=== PATIENT | male | born 1970 | race Caucasian/White ===

== ENCOUNTER → 2020-06-28 08:50 | Outpatient (CLI) | payer MEDICAID, SELFPAY ==
[2020-06-28 09:44] LABS: Hemoglobin A1c 5.3 % (3.8-5.6)
[2020-06-28 09:47] LABS: ALB/GLOB Ratio 1.1 RATIO (0.9-2.4); AST(SGOT) 11 U/L (15-37); Alanine Aminotransfer ALT/SGPT 20 U/L (16-61); Albumin, Serum 3.9 g/dL (3.2-5.0); Alkaline Phosphatase 100 U/L (45-117); Anion Gap 3 (5-15); BUN 16 mg/dL (7-18); BUN/Creat Ratio 14.3 RATIO (10-20); Calcium,Total 9.1 mg/dL (8.5-10.1); Chloride 107 mmol/L (98-107); Cholesterol 192 mg/dL (200); Creatinine, Serum 1.12 mg/dL (0.70-1.30); EST Glomerular Filtration Rate 73 mL/min (>60); Est Glom Filt Rate - Afr Amer 89 mL/min (>60); Globulin 3.6 g/dL (2.2-4.2); Glucose 116 mg/dL (74-106); High Density Lipoprotein 35 mg/dL; Potassium 4.7 mmol/L (3.5-5.1); Protein, Total 7.5 g/dL (6.4-8.2); Sodium Level 141 mmol/L (136-145); Triglycerides 237 mg/dL; Very Low Density Lipoprotein 47 mg/dL (5-40)
== END ==
PROVIDERS: PCP Nurse Practitioner Family; Referring Provider Nurse Practitioner Family; Visit Provider Nurse Practitioner Family
DX: E11.9 Type 2 diabetes mellitus without complications (principal); E78.5 Hyperlipidemia, unspecified
CPT/HCPCS: 36415; 80053; 80061; 83036

== ENCOUNTER → 2020-11-29 12:08 | Outpatient (CLI) | payer MEDICAID, SELFPAY ==
[2020-11-29 13:37] LABS: Microalbumin,Random Urine 6.1 mg/L (NO RANGE EST.)
[2020-11-29 13:45] LABS: ALB/GLOB Ratio 1.1 RATIO (0.9-2.4); AST(SGOT) 16 U/L (15-37); Alanine Aminotransfer ALT/SGPT 22 U/L (16-61); Albumin, Serum 4.1 g/dL (3.2-5.0); Alkaline Phosphatase 99 U/L (45-117); Anion Gap 6 (5-15); BUN 20 mg/dL (7-18); BUN/Creat Ratio 19.8 RATIO (10-20); Calcium,Total 9.6 mg/dL (8.5-10.1); Chloride 106 mmol/L (98-107); Cholesterol 214 mg/dL (200); Creatinine, Serum 1.01 mg/dL (0.70-1.30); EST Glomerular Filtration Rate 82 mL/min (>60); Est Glom Filt Rate - Afr Amer 100 mL/min (>60); Globulin 3.7 g/dL (2.2-4.2); Glucose 95 mg/dL (74-106); High Density Lipoprotein 39 mg/dL; Lipase 769 U/L (73-393); Potassium 4.2 mmol/L (3.5-5.1); Protein, Total 7.8 g/dL (6.4-8.2); Sodium Level 141 mmol/L (136-145); Triglycerides 205 mg/dL; Very Low Density Lipoprotein 41 mg/dL (5-40)
[2020-11-29 13:47] LABS: Hemoglobin A1c 5.3 % (3.8-5.6)
== END ==
DX: E11.9 Type 2 diabetes mellitus without complications (principal); E78.5 Hyperlipidemia, unspecified
CPT/HCPCS: 36415; 80053; 80061; 82043; 83036; 83690

== ENCOUNTER → 2020-12-07 09:39 | Outpatient (CLI) | payer MEDICAID, SELFPAY ==
[2020-12-07 11:07] LABS: Absolute Lymphocyte Count 1.66 X10^3/uL (0.83-4.51); Absolute Neutrophil Count 4.1 X10^3/uL (2.0-7.7); Basophil# 0.06 X10^3/uL; Basophil% 0.9 % (0-1); Eosinophil# 0.22 X10^3/uL; Eosinophils% 3.3 % (0-5); Hematocrit 49.2 % (40-54); Hemoglobin 15.7 g/dL (13.0-16.5); Lymphocyte # 1.66 X10^3/ul (4.0); Lymphocyte % 25.2 % (19-41); Mean Corp Hgb Conc 31.9 g/dL (32-36); Mean Corpuscular Hgb 27.5 pg (27.0-32.0); Mean Corpuscular Volume 86.2 fL (80-94); Mean Platelet Vol. 9.9 fl (6.2-12.0); Monocyte# 0.56 X10^3/uL; Monocyte% 8.5 % (0-10); NRBC Flagged by Analyzer 0 % (0-5); Neutrophil # 4.07 X10^3/uL (2.7-7.7); Neutrophil % 61.8 % (47-70); Platelet Count 255 K/mm3 (150-450); RBC Distribution Width CV 13.4 % (11.6-14.6); RBC Distribution Width SD 42.4 fl (35.1-43.9); Red Blood Count 5.71 M/mm3 (4.6-6.2); White Blood Count 6.6 K/mm3 (4.4-11.0)
[2020-12-07 11:26] LABS: Lipase 346 U/L (73-393)
== END ==
DX: K86.1 Other chronic pancreatitis (principal); E11.9 Type 2 diabetes mellitus without complications
CPT/HCPCS: 36415; 83690; 85025

== ENCOUNTER → 2020-12-10 17:13 | Outpatient (CLI) | payer MEDICAID, SELFPAY ==
[2020-12-10 18:40] LABS: Lipase 228 U/L (73-393)
== END ==
PROVIDERS: Referring Provider Nurse Practitioner Adult Health; Visit Provider Nurse Practitioner Adult Health
DX: K86.1 Other chronic pancreatitis (principal)
CPT/HCPCS: 36415; 83690

== ENCOUNTER 2020-12-27 03:50 | Emergency (ER) | payer MEDICAID, SELFPAY ==
--- NOTE | 2020-12-27 03:55 | EKG12_ITS ---
Test Reason : CP Blood Pressure : / mmHG Vent. Rate : 073 BPM Atrial Rate : 073 BPM P-R Int : 150 ms QRS Dur : 084 ms QT Int : 378 ms P-R-T Axes : 073 -04 036 degrees QTc Int : 416 ms Normal sinus rhythm with sinus arrhythmia Normal ECG Confirmed by HARRY CHU, JULES ([id number]), photograph editor RAMON KOCH ([id number]) on 12/28/2020 9:05:16 AM Referred By: HAWK Confirmed By:JULES MCDONALD MD
--- NOTE | 2020-12-27 03:56 | ED.DCSUM_ITS ---
History of Present Illness Chief Complaint: Chest Other Informant: Patient Onset: Days Context: Gradual Onset Timing: Intermittent Current Severity: Moderate Maximum Severity: Moderate Narrative: Patient is a 50-year-old male medical history significant for pis-wpxnqul-ihxbdsgrc diabetes who presents to the emergency department with abdominal pain. Patient states his symptoms began on Sunday. He states that he was eating cheese and crackers. He states shortly thereafter, he began to have pain in his midepigastric area under his right upper quadrant. He states it would wax and wane but never really go away. He denies any fevers. He does admit to some nausea. He states that he tried yqfk-ukh-bgdorwx acid reducers with little improvement. He states sometimes, and feels like it is radiating to his chest. He is never had pain like this before. He has no history of surgery. He has no history of coronary vascular disease. Past Medical History - Allergies and Home Meds Allergies/Adverse Reactions: Allergies No Known Allergies Allergy (Verified 12/27/20 03:51) [facility] - Prior records reviewed: Yes Past Medical History: - - DM Surgical History: noncontributory Review of Systems General: Denies: Chills, Fever, Sweats Eyes: Denies: Visual changes - bilaterally, Diplopia ENT: Denies: Rhinorrhea, Sore throat Cardiovascular: Denies: Chest pain, Palpitations Respiratory: Denies: Dyspnea, Cough, Dyspnea on exertion Gastrointestinal: Reports: Abdominal pain, Nausea. Denies: Vomiting, Diarrhea, Melena, Hematochezia Genitourinary: Denies: Dysuria, Hematuria, Frequency Musculoskeletal: Denies: Back pain, Extremity Pain Skin: Denies: Rash, Wounds Neurological: Denies: Headache, Weakness, Numbness Physical Exam Inital Vital Signs reviewed: Yes General: Well nourished, Well developed, No Acute Distress Head: Normocephalic, Atraumatic Eyes: Perrl, EOMI ENT: Moist mucous membranes, No rhinorrhea Neck: Supple, Nontender Cardiovascular: Regular rate, Regular rhythm, No murmurs Respiratory: No distress, CTA bilaterally, Chest nontender Abdomen: Soft, Nondistended, Normal bowel sounds, Tender. Negative for: Guarding, Rebound tenderness Back: Nontender, Normal Inspection Extremities: Nontender, No edema Skin: Normal color, No rash Neurological: Alert, Oriented x3, Cranial nerves II-XII grossly intact, Normal Strength, Normal Sensation Psychological: Normal affect, Normal Mood Diagnostic/Tx/Re-eval Clinical Impression(s) from Imaging Studies Abdomen/Pelvis CT 12/27/20 04:37 IMPRESSION: Edema of the wall of the duodenum and adjacent stranding and the first and second part suspicious for duodenitis. Mild enlargement of the head of the pancreas which may represent pancreatitis. Adjacent small reactive lymph node. Constipation. Degenerative change of the thoracolumbar spine. Electronically Signed: Madison Spring MD at 5:16 EDT Tel , Service support , Abnormal Lab Results 12/27/20 12/27/20 04:10 04:10 WBC 9.0 RBC 5.50 Hgb 15.6 Hct 47.1 MCV 85.6 MCH 28.4 MCHC 33.1 RDW Std Deviation 41.6 RDW Coeff of Celine 13.2 Plt Count 217 MPV 9.8 Immature Gran % (Auto) 0.300 Neut % (Auto) 67.9 Lymph % (Auto) 19.6 Murray % (Auto) 8.2 Eos % (Auto) 3.3 Baso % (Auto) 0.7 Absolute Neuts (auto) 6.1 Absolute Lymphs (auto) 1.77 Nucleated RBC % 0 Sodium 139 Potassium 4.1 Chloride 104 Carbon Dioxide 28.0 Anion Gap 7 BUN 21 H Creatinine 1.16 Estim Creat Clear Calc 72.07 Est GFR (MDRD) Af Amer 85 Est GFR (MDRD) Non-Af 70 BUN/Creatinine Ratio 18.1 Glucose 93 Calcium 9.2 Total Bilirubin 0.50 AST 12 L ALT 18 Alkaline Phosphatase 86 Troponin I < 0.015 Total Protein 7.3 Albumin 3.9 Globulin 3.4 Albumin/Globulin Ratio 1.1 Lipase 233 - Medical Decision Making Patient presents with right upper quadrant pain to his mid epigastrium. He states its been constant for the past 24 hours. He is mildly nauseated with no vomiting. EKG was obtained on patient arrival. Was sinus rhythm without evidence of acute ischemic change. I do not suspect that this is cardiac pain. This does seem to be more GI related. Metabolic work-up was pursued. Labs are unremarkable. Of note, the patient has been taking double dose of his Metformin it is only supposed to be on once daily. I do feel this is causing GI irritation. Patient underwent CT imaging. There is evidence of duodenitis. There is no perforation. He is had no bleeding. I am going to treat him with combination therapy with PPI and Carafate. Patient is comfortable with this plan of care and we discharged home. Impression 1. Acute duodenitis ED Disposition - Plan for ED Patient: Instructions: ED PEPTIC ULCER vs GASTRITIS Prescriptions: Sucralfate [Carafate] 1 gm PO 4X/DAY #120 tab Prescription Printed Pantoprazole Sodium [Protonix] 40 mg PO DAILY #30 tab Prescription Printed [facility]: [facility] [Primary Care Provider] -
[2020-12-27 03:57] VITALS: BP 136/89; PULSE 81; RESP 18; TEMP 36.6; O2SAT 98; BMI 29.7
[2020-12-27 04:14] VITALS: BP 136/89; PULSE 69; RESP 18
[2020-12-27 04:16] LABS: Absolute Lymphocyte Count 1.77 X10^3/uL (0.83-4.51); Absolute Neutrophil Count 6.1 X10^3/uL (2.0-7.7); Basophil# 0.06 X10^3/uL; Basophil% 0.7 % (0-1); Eosinophils% 3.3 % (0-5); Hematocrit 47.1 % (40-54); Hemoglobin 15.6 g/dL (13.0-16.5); Lymphocyte # 1.77 X10^3/ul (4.0); Lymphocyte % 19.6 % (19-41); Mean Corp Hgb Conc 33.1 g/dL (32-36); Mean Corpuscular Hgb 28.4 pg (27.0-32.0); Mean Corpuscular Volume 85.6 fL (80-94); Mean Platelet Vol. 9.8 fl (6.2-12.0); Monocyte# 0.74 X10^3/uL; Monocyte% 8.2 % (0-10); NRBC Flagged by Analyzer 0 % (0-5); Neutrophil # 6.14 X10^3/uL (2.7-7.7); Neutrophil % 67.9 % (47-70); Platelet Count 217 K/mm3 (150-450); RBC Distribution Width CV 13.2 % (11.6-14.6); RBC Distribution Width SD 41.6 fl (35.1-43.9)
[2020-12-27] MEDS: 0.9% Normal Saline 1,000 ML 1000 ML IV (04:18)
[2020-12-27] MEDS: Ondansetron 4 MG/2 ML Vial IV (04:18)
[2020-12-27] MEDS: Morphine 4 MG/ML Syringe IV (04:18)
[2020-12-27 04:36] LABS: ALB/GLOB Ratio 1.1 RATIO (0.9-2.4); AST(SGOT) 12 U/L (15-37); Alanine Aminotransfer ALT/SGPT 18 U/L (16-61); Albumin, Serum 3.9 g/dL (3.2-5.0); Alkaline Phosphatase 86 U/L (45-117); Anion Gap 7 (5-15); BUN 21 mg/dL (7-18); BUN/Creat Ratio 18.1 RATIO (10-20); Calcium,Total 9.2 mg/dL (8.5-10.1); Chloride 104 mmol/L (98-107); Creatinine, Serum 1.16 mg/dL (0.70-1.30); EST Glomerular Filtration Rate 70 mL/min (>60); Est Glom Filt Rate - Afr Amer 85 mL/min (>60); Estimated Creatinine Clearance 72.07 ml/min; Globulin 3.4 g/dL (2.2-4.2); Glucose 93 mg/dL (74-106); Lipase 233 U/L (73-393); Potassium 4.1 mmol/L (3.5-5.1); Protein, Total 7.3 g/dL (6.4-8.2); Sodium Level 139 mmol/L (136-145)
--- NOTE | 2020-12-27 04:37 | CT_ITS ---
INDICATION: abd pain EXAMINATION: CT ABDOMEN AND PELVIS WITH CONTRAST - CT Abdomen And Pelvis W/ Contrast Injection TECHNIQUE: Helically acquired images were obtained of the abdomen and pelvis following IV contrast. A radiation dose optimization technique was used for this scan. IV Contrast dosage and agent: 100 mL of Isovue-370 Oral contrast: None. COMPARISON: None. FINDINGS: LOWER CHEST: Lung bases are clear. No cardiomegaly or pericardial effusion. LIVER: Homogeneous. No focal mass. GALLBLADDER AND BILIARY TREE: No calcified gallstones. No gallbladder distension or wall edema. No intra- or extrahepatic biliary ductal dilation. PANCREAS: There is an enlarged appearance of the head of the pancreas. There is adjacent edema surrounding the duodenum. Mild distention of the pancreatic duct. There is minimal distention of the common duct. SPLEEN: Normal size without focal cystic or solid mass. ADRENAL GLANDS: No nodules. KIDNEYS AND URETERS: Normal renal size and position. No hydronephrosis. PERITONEUM: No ascites or free air. No other fluid collection. BOWEL: No evidence of acute appendicitis. There is an edematous appearance of the duodenum with wall thickening. There is an adjacent lymph node measuring 1.1 cm. There is abundant stool within the colon. LYMPH NODES: No enlarged mesenteric or retroperitoneal lymph nodes. VESSELS: Aorta is non-dilated. URINARY BLADDER: Unremarkable. REPRODUCTIVE ORGANS: The prostate appears of normal size. There is partial calcification. ABDOMINAL WALL: No discrete abdominal or pelvic wall hernia. BONES: There is multilevel spondylosis. There is multilevel degenerative change. There are multilevel Schmorl''s nodes. At L4-L5 there is a broad disc bulge mild to moderate neural foramina narrowing without central stenosis. CT/Abdomen/Pelvis W IV Cont ONLY IMPRESSION: Edema of the wall of the duodenum and adjacent stranding and the first and second part suspicious for duodenitis. Mild enlargement of the head of the pancreas which may represent pancreatitis. Adjacent small reactive lymph node. Constipation. Degenerative change of the thoracolumbar spine. Electronically Signed: Madison Spring MD at 5:16 EDT Tel , Service support ,
[2020-12-27 05:38] VITALS: BP 114/82; PULSE 75; RESP 18; O2SAT 96
== END 2020-12-27 05:39 | disposition home or self-care (01) ==
LOC: ED 04:10
PROVIDERS: Emergency Provider Emergency Medicine
DX: K29.80 Duodenitis without bleeding (principal); E11.9 Type 2 diabetes mellitus without complications; Z79.84 Long term (current) use of oral hypoglycemic drugs
CPT/HCPCS: 74177; 80053; 83690; 84484; 85025; 93005; 96374; 96375; 99282; J7030; A4216; J2405

== ENCOUNTER → 2021-02-14 09:57 | Outpatient (CLI) | payer MEDICAID, SELFPAY ==
--- NOTE | 2021-02-14 12:42 | NEURO_ITS ---
NCS and/or EMG Patient Report Ordering Doctor: Izabela Gutierrez DATE OF SERVICE: 02/14/21 Indication: Pain and numbness involving the toes and soles of both feet. Symptoms have been present intermittently for one year. He reports that this has improved since discontinuing his metformin medication, but he is unsure if it is related. He has chronic low back pain and known spondylosis. He denies any significant weakness in the bilateral lower extremities. Findings: Nerve conduction studies were performed in the right and left lower extremities. The right peroneal motor study recording the extensor digitorum brevis showed a normal amplitude, normal distal latency and normal conduction velocity. No conduction block or focal slowing was present across the fibular neck. The right tibial motor study recording the abductor hallucis brevis showed a normal amplitude, normal distal latency and normal conduction velocity. Right sural sensory response showed a normal amplitude and conduction velocity. Right superficial peroneal sensory response showed a normal amplitude and conduction velocity. The left peroneal motor study recording the extensor digitorum brevis showed a normal amplitude, normal distal latency and normal conduction velocity. No conduction block or focal slowing was present across the fibular neck. The left tibial motor study recording the abductor hallucis brevis showed a normal amplitude, normal distal latency and normal conduction velocity. Left sural sensory response showed a normal amplitude and conduction velocity. Left superficial peroneal sensory response showed a normal amplitude and conduction velocity. Needle EMG of the bilateral lower extremities and paraspinal muscles was performed. In the right lower extremity, insertional activity was increased in the medial gastrocnemius and extensor hallucis longus muscles. No obvious denervation was present in any examined muscle. Motor unit morphology, activation, and recruitment patterns were normal in the other examined muscles. In the left lower extremity, insertional activity was increased in the tibialis anterior and medial gastrocnemius muscles. No obvious denervation was present in any examined muscle. Motor unit morphology, activation, and recruitment patterns were normal in the other examined muscles. Impression: This is an abnormal study. There is electrophysiologic evidence suggestive of bilateral, mild, chronic, L5/S1 radiculopathies. There is some irritability of affected muscles, but no chula denervation. In addition, there was no electrophysiologic evidence of a peripheral polyneuropathy in the lower extremities. Please note: routine nerve conduction studies and needle EMG assess the larger, myelinated motor and sensory fibers. Thus, routine electrodiagnostic studies may be insensitive in detecting a peripheral neuropathy restricted to small fibers alone (i.e., pain, temperature and autonomic fibers). However, most peripheral neuropathies with predominantly small fiber large dysfunction will also involve large fibers to a lesser extent, and will demonstrate abnormalities on e lectrodiagnostic studies. Thus, clinical correlation is required in the interpretation of this negative electrodiagnostic study if an isolated small fiber neuropathy is considered. Diogo Schulz D.O.
== END ==
PROVIDERS: Referring Provider Nurse Practitioner Adult Health; Visit Provider Nurse Practitioner Adult Health
DX: R20.2 Paresthesia of skin (principal)
CPT/HCPCS: 95886; 95911

== ENCOUNTER 2021-08-10 01:45 | Emergency (ER) | payer MEDICAID, SELFPAY ==
[2021-08-10 01:46] VITALS: BP 139/102; PULSE 67; RESP 17; TEMP 37.1; O2SAT 97; BMI 31.7
[2021-08-10 01:56] VITALS: O2SAT 97
--- NOTE | 2021-08-10 01:58 | RAD_ITS ---
STUDY: X-RAY CHEST REASON FOR EXAM: Male, 51 years old. chest pain TECHNIQUE: PA and lateral views of the chest. COMPARISON: None. FINDINGS: The lungs are clear and expanded. There is no demonstrated pleural abnormality. Normal size heart. Normal mediastinum and juliana. Normal visualized pulmonary arteries. Normal visualized aortic arch and descending thoracic aorta. There are diffuse degenerative changes of the visualized thoracic spine. There is degenerative osteoarthritis of the bilateral shoulders. There is no demonstrated abnormality of the visualized soft tissue structures of the upper abdomen. RAD/Chest PA and Lateral IMPRESSION: No acute cardiopulmonary disease. Electronically Signed: Savannah Ace MD at 2:25 EDT , Service support ,
--- NOTE | 2021-08-10 01:58 | EKG12_ITS ---
Test Reason : CP Blood Pressure : / mmHG Vent. Rate : 075 BPM Atrial Rate : 075 BPM P-R Int : 138 ms QRS Dur : 082 ms QT Int : 380 ms P-R-T Axes : 051 -27 026 degrees QTc Int : 424 ms Normal sinus rhythm Normal ECG Confirmed by ANDER CHU, MERCY ([id number]), scientific editor RAMON KOCH ([id number]) on 08/11/2021 8:56:28 AM Referred By: Confirmed By:MERCY WORTHINGTON MD
[2021-08-10] MEDS: Mag Hydrox/Al Hydrox/Simeth 30 ML UDC PO (02:05)
[2021-08-10 02:13] LABS: Absolute Lymphocyte Count 2.03 X10^3/uL (0.83-4.51); Absolute Neutrophil Count 6.4 X10^3/uL (2.0-7.7); Basophil# 0.04 X10^3/uL; Basophil% 0.4 % (0-1); Eosinophil# 0.32 X10^3/uL; Eosinophils% 3.3 % (0-5); Hematocrit 45.8 % (40-54); Hemoglobin 15.3 g/dL (13.0-16.5); Lymphocyte # 2.03 X10^3/ul (0.83-4.51); Lymphocyte % 21.1 % (19-41); Mean Corp Hgb Conc 33.4 g/dL (32-36); Mean Corpuscular Hgb 28.3 pg (27.0-32.0); Mean Corpuscular Volume 84.8 fL (80-94); Mean Platelet Vol. 10.1 fl (6.2-12.0); Monocyte# 0.79 X10^3/uL; Monocyte% 8.2 % (0-10); NRBC Flagged by Analyzer 0 % (0-5); Neutrophil # 6.43 X10^3/uL (2.7-7.7); Neutrophil % 66.7 % (47-70); Platelet Count 233 K/mm3 (150-450); RBC Distribution Width CV 12.9 % (11.6-14.6); RBC Distribution Width SD 39.8 fl (35.1-43.9); White Blood Count 9.6 K/mm3 (4.4-11.0)
--- NOTE | 2021-08-10 02:22 | ED.VIS.CHEST ---
HPI History of Present Illness Chief Complaint: Chest Pain Detail of Chief Complaint: Subxiphoid discomfort with radiation to the back Informant: patient Onset/Context/Timing Onset: Yesterday (Subxiphoid discomfort last evening for 1 to 1.5 hours and to the day at 1420 200) and Weeks (Central intrascapular back pain intermittently for 1 to 2 weeks) Activity at onset: sudden and rest Timing: Intermittent (1.5 to greater than 2 hours) Quality: Positive for Indigestion (Patient states he had indigestion at 1400 and got better after eating.) Location: Substernal Current Severity: Moderate Maximum Severity: Moderate (Discomfort this evening and unable to go to sleep) Worsened By: Nothing Relieved By: NSAIDS (The episode that occurred the night prior to presentation) Associated Symptoms: Negative for Nausea, Vomiting, Diaphoresis, Dyspnea, Cough, Fever, Lightheadedness, Acid Reflux and Palpitations Narrative Narrative: Patient is a 51-year-old male who quit smoking several years ago. He smoked 2 packs/day since age of 9. He has a remote history of pancreatitis. The cause of his pancreatitis was unknown. He denies intolerance to greasy or fried foods. He denies family history of cholelithiasis. He denies history of PE or DVT. He denies leg pain, swelling discoloration. He denies symptoms of claudication. He denies change in the color, consistency or caliber of his stool. The discomfort is not positional. This is not similar to the pain he had when he was diagnosed with pancreatitis. He states he was in the hospital for 8 days. He was cared for at [facility]. He presents because the pain that started at 2200 has not gone away. Prior Similar Symptoms: No Recent Illness/Hospitalization: No CVD Risk Factors: Positive for Smoking; Negative for Hypertension, Diabetes, Hypercholesterolemia and Family History 1' </=55 PE Risk Factors: Negative for Recent Travel/Surgery, Recent Immobilization, Prior DVT or PE, Cancer and OCP + Smoking + >/=35 TAD Risk Factors: Negative for Marfan's Syndrome, Hypertension and Family History [facility] Medical History Pancreatitis Home Medications omeprazole 20 mg PO DAILY #30 capsule 08/10/21 [Rx Last Taken Unknown] Allergy/AdvReac Type Severity Reaction Status Date / Time No Known Allergies Allergy Verified 08/10/21 01:54 Social History (Updated 08/10/21 @ 02:[address] Adrian Botello MD) household members: spouse current occupational status: employed history of recent travel: No Smoking Status: Former smoker substance use type: does not use ROS ROS ED Constitutional Constitutional ED: Denies chills, fever(s), subjective, sweats or weight loss Eyes Eyes: Denies blurry vision, change in vision or diplopia ENT ENT ED: Denies ear pain, rhinorrhea or sore throat Cardiovascular Cardiovascular: Reports as per HPI and chest pain; Denies orthopnea, palpitations, paroxysmal nocturnal dyspnea or racing heartbeat Respiratory/Chest Respiratory/Chest: Denies cough, dyspnea, dyspnea on exertion, orthopnea, paroxysmal nocturnal dyspnea or sputum Gastrointestinal Gastrointestinal: Reports abdominal pain; Denies constipation, diarrhea, melena, nausea or vomiting Genitourinary Genitourinary ED: Denies dysuria, hematuria or urinary frequency Musculoskeletal Musculoskeletal: Denies arthralgias, back pain or myalgias Integumentary Denies rash Neurologic Neurologic: Denies headache(s) or weakness Hematologic/Lymphatic Hematologic/Lymphatic: Denies easy bleeding or easy bruising EXAM Physical Exam Const Vital Signs: 08/10/21 01:46 08/10/21 01:54 08/10/21 01:56 Temperature 98.7 F Temperature Source Temporal Pulse Rate 67 Respiratory Rate 17 Respiratory Effort Short of Breath Blood Pressure 139/102 H Blood Pressure Mean 114 Pulse Ox 97 97 Oxygen Delivery Method Room Air Room Air Positive well nourished, well developed and obese General Appearance ED: well developed and NAD; Negative for pallor Nutritional Appearance: obese HEENT Reports TM's clear and moist mucous membranes normocephalic and atraumatic Tympanic Membrane ED: Yes TM's clear Eyes PERRL and EOMs intact bilaterally General Eye ED: Negative for pale conjunctiva or scleral icterus Neck no lymphadenopathy, supple and no JVD Chest Wall palpation of chest normal Resp normal respiratory effort and clear to auscultation bilaterally Effort and Inspection: respiratory distress Cardio regular rate, regular rhythm, S1 normal heart sound and S2 normal heart sound Rate: tachycardic GI normal to inspection, nondistended, normoactive bowel sounds, soft to palpation, non-distended and no masses; Negative for hepatosplenomegaly GI Narrative: Patient has pain outpatient the epigastric left upper quadrant. Palpation: Negative for splenomegaly Back/Spine no CVA tenderness and no thoracic nor lumbar tenderness Extremity normal to inspection Extremity Narrative: There is no asymmetry, swelling, discoloration, leg vein distention, palpable cords or tenderness along the distribution of the deep venous system. General Extremety ED: Negative for edema or tenderness General Extremity: Negative for edema Neuro oriented x3 and CN's II-XII intact bilaterally Sensorium / Orientation: awake and alert Psych mental status grossly normal Skin no rashes or lesions noted and no wounds General Skin Exam: Negative for jaundice or pallor Heart Score History: Slightly/Non-Suspicious ECG: Normal Age: >45 - <65 years Risk Factors: 1 or 2 Risk Factors Score: 2 MDM MDM MDM Narrative Medical decision making narrative: With tenderness in the epigastric area rating through the back need to consider biliary disease. Also need to consider esophagitis, reflux, peptic ulcer disease. Since there is also tenderness in left upper quadrant lipase was obtained to rule out pancreatitis. With history of indigestion may represent atypical presentation of an inferior cardiac ischemia. Since patient described as indigestion and improved with meal GI cocktail was ordered. Patient was reassessed at 0245. He states the pain that was anterior has improved significantly. He still having discomfort in the middle of his back. Patient asked if he could have more of the GI cocktail. IV Pepcid was ordered. Patient was reassessed at 0340. He reports marked improvement after IV Pepcid. Plan is discharged home with appropriate home-going instructions and prescription for PPI. Lab Data Attestation: I reviewed the patient's lab results. Labs: Laboratory Results - last 24 hr 08/10/21 08/10/21 01:55 01:55 WBC 9.6 RBC 5.40 Hgb 15.3 Hct 45.8 MCV 84.8 MCH 28.3 MCHC 33.4 RDW Std Deviation 39.8 RDW Coeff of Celine 12.9 Plt Count 233 MPV 10.1 Immature Gran % (Auto) 0.300 Neut % (Auto) 66.7 Lymph % (Auto) 21.1 Monroe % (Auto) 8.2 Eos % (Auto) 3.3 Baso % (Auto) 0.4 Absolute Neuts (auto) 6.4 Absolute Lymphs (auto) 2.03 Nucleated RBC % 0 Sodium 139 Potassium 4.2 Chloride 109 H Carbon Dioxide 27.0 Anion Gap 3 L BUN 31 H Creatinine 1.05 Estim Creat Clear Calc 78.71 Est GFR (MDRD) Af Amer 95 Est GFR (MDRD) Non-Af 78 BUN/Creatinine Ratio 29.5 H Glucose 119 H Calcium 9.1 Total Bilirubin 0.30 AST 15 ALT 20 Alkaline Phosphatase 109 Troponin I High Sens 5 Total Protein 7.2 Albumin 3.5 Globulin 3.7 Albumin/Globulin Ratio 0.9 Lipase 187 Radiography Chest X-Ray - ED: 2 View, Read by ED Physician (Chest x-ray was interpreted by me at 020. The chest x-ray was normal.), Normal, Heart, Lungs, Mediastinum, Bony Structures and No Acute Disease Diagnostic Testing: Clinical Impression(s) from Imaging Studies Chest X-Ray 08/10/21 01:58 IMPRESSION: No acute cardiopulmonary disease. Electronically Signed: Savannah Ace MD at 2:25 EDT , Service support , Discharge Plan Triage Chief Complaint: Chest Pain ED Provider: Adrian Botello Dx/Rx/DC Orders Clinical Impression: Chest pain due to gastrointestinal reflux disease Instructions: ED GERD (Adult) Prescriptions: New omeprazole [omeprazole] 20 MG capsule 20 mg PO DAILY Qty: 30 RF: 0 Primary Care Provider: [facility] Ela Cox Referrals: [facility] Ela Cox [Primary Care Provider] - Doctor,Your [STAFF PHYSICIAN] - 10-14 Days if not better Disposition Disposition: Home, Self Care
[2021-08-10 02:28] LABS: BUN 31 mg/dL (7-18); Creatinine, Serum 1.05 mg/dL (0.70-1.30); Estimated Creatinine Clearance 78.71 ml/min; Glucose 119 mg/dL (74-106)
[2021-08-10 02:29] LABS: ALB/GLOB Ratio 0.9 RATIO (0.9-2.4); AST(SGOT) 15 U/L (15-37); Alanine Aminotransfer ALT/SGPT 20 U/L (16-61); Albumin, Serum 3.5 g/dL (3.2-5.0); Alkaline Phosphatase 109 U/L (45-117); Anion Gap 3 (5-15); BUN/Creat Ratio 29.5 RATIO (10-20); Calcium,Total 9.1 mg/dL (8.5-10.1); Chloride 109 mmol/L (98-107); EST Glomerular Filtration Rate 78 mL/min (>60); Est Glom Filt Rate - Afr Amer 95 mL/min (>60); Globulin 3.7 g/dL (2.2-4.2); Lipase 187 U/L (73-393); Potassium 4.2 mmol/L (3.5-5.1); Protein, Total 7.2 g/dL (6.4-8.2); Sodium Level 139 mmol/L (136-145); Troponin-I HS 5 pg/mL (3.0-78.0)
[2021-08-10] MEDS: Famotidine 200 MG/20 ML MDV 20 MG in 0.9% Normal Saline (Pres. free 8 ML 300 MG IV (03:03)
== END 2021-08-10 03:47 | disposition home or self-care (01) ==
PROVIDERS: Emergency Provider Emergency Medicine
DX: R07.9 Chest pain, unspecified (principal); K21.9 Gastro-esophageal reflux disease without esophagitis; E66.9 Obesity, unspecified; Z87.891 Personal history of nicotine dependence
CPT/HCPCS: 71046; 80053; 83690; 84484; 85025; 93005; 99285; A4216; J3490

== ENCOUNTER → 2021-08-11 10:02 | Outpatient (CLI) | payer MEDICAID, SELFPAY ==
--- NOTE | 2021-08-11 10:05 | RAD_ITS ---
STUDY: X-RAY - ABDOMEN/PELVIS REASON FOR EXAM: Male, 51 years old. RUQ PAIN -- FLAT PLATE XRAY OF ABD TO RULE OUT ILEUS TECHNIQUE: Single AP view of the abdomen / pelvis. COMPARISON: None. FINDINGS: Normal visualized lung bases. There is an unremarkable bowel gas pattern. There is no demonstrated free abdominal air. The visualized liver, spleen and kidneys are grossly normal in size and morphology. There are calcified phleboliths in the pelvis. There are diffuse degenerative changes of the visualized lumbar spine. RAD/Abdomen Single View IMPRESSION: Nonspecific gas pattern. Electronically Signed: Savannah Ace MD at 0:40 EDT , Service support ,
--- NOTE | 2021-08-11 10:06 | US_ITS ---
STUDY: ABDOMINAL ULTRASOUND - RIGHT UPPER QUADRANT REASON FOR VISIT: Male, 51 years old RUQ PAIN TECHNIQUE: Ultrasound evaluation of the right upper quadrant was performed with real-time and static baker-scale imaging. TECHNICAL QUALITY: Adequate. COMPARISON: None. FINDINGS: Liver: The liver measures 16.6 cm. There is normal echogenicity of the liver. The bile ducts are within normal limits. There is hepatic color flow. The direction of portal flow is hepatopetal. There is no demonstrated mass lesion. Gallbladder: Normal distended gallbladder. The gallbladder wall measures 1.5 mm. There is a negative sonographic Palmer''s sign. There is no pericholecystic fluid. There are no gallstones. Common Bile Duct (C.B.D.): The common bile duct measures 3.8 mm. Pancreas: Normal size of the head, body and tail of the pancreas. There is normal echogenicity of the pancreas. There is no demonstrated pancreatic mass or cyst. Right Kidney: Normal size of the right kidney. The right kidney measures 9.5 cm x 6.5 cm x 6.9 cm. Normal renal cortex. The right cortex measures 1.1 cm. There is a 1.5 cm x 1.3 cm x 1.3 cm septated cyst in the mid lateral aspect of the right kidney. There is no right hydronephrosis. US/Abdomen Limited IMPRESSION: Small right renal cyst. Electronically Signed: Jamey Lora MD at 13:37 EDT , Service support ,
== END ==
PROVIDERS: Referring Provider Nurse Practitioner Adult Health; Visit Provider Nurse Practitioner Adult Health
DX: R10.11 Right upper quadrant pain (principal)
CPT/HCPCS: 74018; 76705

== ENCOUNTER 2021-10-17 15:00 | Outpatient (CLI) | payer MEDICAID, SELFPAY ==
--- NOTE | 2021-10-17 15:06 | US_ITS ---
STUDY: ABDOMINAL ULTRASOUND - RIGHT UPPER QUADRANT REASON FOR VISIT: Male, 51 years old FOLLOWUP IMAGES, RUQ PAIN TECHNIQUE: Ultrasound evaluation of the right upper quadrant was performed with real-time and static baker-scale imaging. TECHNICAL QUALITY: Adequate. COMPARISON: None. FINDINGS: The abdominal aorta is unremarkable. No evidence of aortic aneurysm. Spleen: 11.9 cm x 6.3 cm x 5.5 cm The left kidney measures 11.2 cm x 5.2 cm x 5.3 cm. US/Abdomen Limited IMPRESSION: Unremarkable examination. Electronically Signed: Jamey Lora MD at 15:48 EST , Service support ,
== END 2021-10-17 23:59 | disposition short-term general hospital (02) ==
PROVIDERS: Visit Provider Nurse Practitioner Adult Health
DX: R10.11 Right upper quadrant pain (principal)
CPT/HCPCS: 76705

== ENCOUNTER 2021-10-20 10:48 | Outpatient (CLI) | payer MEDICAID, SELFPAY ==
[2021-10-20 12:12] LABS: PSA,Total - Annual Screen 0.68 ng/mL (0.00-4.00)
== END 2021-10-20 23:59 | disposition short-term general hospital (02) ==
LOC: LAB 10:50
DX: Z12.5 Encounter for screening for malignant neoplasm of prostate (principal)
CPT/HCPCS: 84153; 36415; G0103

== ENCOUNTER → 2022-08-03 | Outpatient (CLI) | payer MEDICAID, SELFPAY ==
[2022-08-03 08:56] LABS: Hematocrit 48.3 % (40-54); Hemoglobin 16.7 g/dL (13.0-16.5); Mean Corp Hgb Conc 34.6 g/dL (32-36); Mean Corpuscular Hgb 29.1 pg (27.0-32.0); Mean Corpuscular Volume 84.1 fL (80-94); Mean Platelet Vol. 9.6 fl (6.2-12.0); Platelet Count 219 K/mm3 (150-450); RBC Distribution Width CV 13.2 % (11.6-14.6); Red Blood Count 5.74 M/mm3 (4.6-6.2)
[2022-08-03 09:31] LABS: AST(SGOT) 15 U/L (15-37); Alanine Aminotransfer ALT/SGPT 31 U/L (16-61); Albumin, Serum 3.9 g/dL (3.2-5.0); Alkaline Phosphatase 124 U/L (45-117); Anion Gap 5 (5-15); BUN 20 mg/dL (7-18); BUN/Creat Ratio 18.3 RATIO (10-20); Calcium,Total 9.3 mg/dL (8.5-10.1); Chloride 106 mmol/L (98-107); Cholesterol 217 mg/dL (200); Creatinine, Serum 1.09 mg/dL (0.70-1.30); EST Glomerular Filtration Rate 75 mL/min (>60); Est Glom Filt Rate - Afr Amer 91 mL/min (>60); Globulin 4.1 g/dL (2.2-4.2); Glucose 143 mg/dL (74-106); High Density Lipoprotein 35 mg/dL; Magnesium 2.1 mg/dL (1.6-2.6); Potassium 4.2 mmol/L (3.5-5.1); Sodium Level 139 mmol/L (136-145); Triglycerides 369 mg/dL; Very Low Density Lipoprotein 74 mg/dL (5-40)
[2022-08-03 09:36] LABS: Hemoglobin A1c 5.9 % (3.8-5.6)
== END | disposition home or self-care (01) ==
LOC: LAB 08:27
DX: E78.5 Hyperlipidemia, unspecified (principal); E11.9 Type 2 diabetes mellitus without complications
CPT/HCPCS: 36415; 80053; 80061; 83036; 83735; 85027

== ENCOUNTER → 2023-09-04 | Outpatient (CLI) | payer MEDICAID, SELFPAY ==
[2023-09-04 10:05] LABS: Hematocrit 51.8 % (40-54); Hemoglobin 16.7 g/dL (13.0-16.5); Mean Corp Hgb Conc 32.2 g/dL (32-36); Mean Corpuscular Hgb 27.7 pg (27.0-32.0); Mean Platelet Vol. 9.8 fl (6.2-12.0); Platelet Count 225 K/mm3 (150-450); RBC Distribution Width CV 13.3 % (11.6-14.6); Red Blood Count 6.02 M/mm3 (4.6-6.2); White Blood Count 7.2 K/mm3 (4.4-11.0)
[2023-09-04 10:35] LABS: Microalbumin,Random Urine < 5.0 mg/L (NO RANGE EST.)
[2023-09-04 11:22] LABS: AST(SGOT) 20 U/L (15-37); Alanine Aminotransfer ALT/SGPT 38 U/L (16-61); Albumin, Serum 3.8 g/dL (3.2-5.0); Alkaline Phosphatase 109 U/L (45-117); Anion Gap 2 (5-15); BUN 18 mg/dL (7-18); BUN/Creat Ratio 15.7 RATIO (10-20); Calcium,Total 9.3 mg/dL (8.5-10.1); Chloride 107 mmol/L (98-107); Cholesterol 208 mg/dL (200); Creatinine, Serum 1.15 mg/dL (0.70-1.30); EST Glomerular Filtration Rate 70 mL/min (>60); Est Glom Filt Rate - Afr Amer 85 mL/min (>60); Globulin 3.8 g/dL (2.2-4.2); Glucose 125 mg/dL (74-106); High Density Lipoprotein 39 mg/dL; PSA,Total - Annual Screen 0.71 ng/mL (0.00-4.00); Potassium 4.7 mmol/L (3.5-5.1); Protein, Total 7.6 g/dL (6.4-8.2); Sodium Level 139 mmol/L (136-145); Triglycerides 231 mg/dL; Very Low Density Lipoprotein 46 mg/dL (5-40)
== END | disposition home or self-care (01) ==
LOC: LAB 09:29
DX: E11.9 Type 2 diabetes mellitus without complications (principal); E78.5 Hyperlipidemia, unspecified; Z12.5 Encounter for screening for malignant neoplasm of prostate
CPT/HCPCS: 84153; 36415; 80053; 80061; 82043; 85027; G0103

== ENCOUNTER 2024-03-17 00:06 | Emergency (ER) | payer MEDICAID, SELFPAY ==
[2024-03-17 00:08] VITALS: PULSE 71; RESP 20; TEMP 36.1; O2SAT 99; BMI 33.3
--- NOTE | 2024-03-17 00:20 | EKG12_ITS ---
Test Reason : CP Blood Pressure : / mmHG Vent. Rate : 071 BPM Atrial Rate : 071 BPM P-R Int : 144 ms QRS Dur : 080 ms QT Int : 380 ms P-R-T Axes : 071 -22 038 degrees QTc Int : 412 ms Normal sinus rhythm Normal ECG Confirmed by Meek Love ([id number]), magazine editor RAMON KOCH ([id number]) on 03/17/2024 11:31:21 AM Referred By: Confirmed By:Meek Love
--- NOTE | 2024-03-17 00:20 | RAD_ITS ---
INDICATION: neck pain EXAMINATION/TECHNIQUE: X-RAY - XR Spine Cervical 4 or 5 Views COMPARISON: No relevant prior comparison study available FINDINGS: VERTEBRAE: Preserved vertebral body height. No fracture. No spondylolisthesis. Preservation of the normal cervical lordosis. No significant facet arthropathy. DISCS: Mild disc space narrowing at C5-C6. Small endplate osteophytes at C4-C5 and C5-C6. Mild associated facet arthropathy. NECK SOFT TISSUES: No prevertebral soft tissue widening. LUNG APICES: Clear. RAD/Cerv Spine 2 or 3 Views IMPRESSION: No evidence of acute fracture or spondylolisthesis. Mild degenerative changes. Electronically Signed: Edenilson Saul MD at 0:44 EDT ,
--- NOTE | 2024-03-17 00:20 | RAD_ITS ---
INDICATION: pain EXAMINATION/TECHNIQUE: X-RAY - LEFT XR Shoulder Min 2 Views 4 VIEWS COMPARISON: No relevant prior comparison study available FINDINGS: SOFT TISSUES: No soft tissue swelling or gas. No radiopaque foreign body. BONES/JOINTS: The glenohumeral joint is well aligned. The acromioclavicular joint is intact with mild hypertrophic degenerative change. The visualized ribs are intact. RAD/Shoulder min 2 Views IMPRESSION: No fracture or malalignment. Mild degenerative change of the left acromioclavicular joint. Electronically Signed: Edenilson Saul MD at 0:45 EDT ,
--- NOTE | 2024-03-17 00:21 | EDS_ITS ---
HPI History of Present Illness Chief Complaint: Upper Extremity Injury Detail of Chief Complaint: Left upper arm pain Informant: patient Narrative Narrative: Patient presents with left upper arm pain that started yesterday morning when he woke up he noticed it. It was pretty severe at times but after couple of hours seem to improve and he was able to get through the day. He denies any injury. First he thought maybe he slept wrong. Some discomfort into the neck at times. He denies chest pain or shortness of breath. He has not had pain like this before. Patient has history of diabetes but currently not taking medications and prior history of pancreatitis. He does not smoke or drink. Denies illicit drug use. [facility] Medical History Pancreatitis Home Medications ?Medication ?Instructions ?Recorded ?Last Taken ?Type hydrocodone-acetaminophen 5-325mg 1 tab PO Q4H PRN PRN Pain 2 days 03/17/24 Unknown Rx 5mg-325mg #14 TABLETS naproxen 500 mg tablet 500 mg PO BID #14 tabs 03/17/24 Unknown Rx Allergy/AdvReac Type Severity Reaction Status Date / Time No Known Allergies Allergy Verified 03/17/24 00:10 Social History (Updated 08/10/21 @ 02:[address] Adrian Botello MD) household members: spouse current occupational status: employed history of recent travel: No Smoking Status: Former smoker substance use type: does not use ROS ROS ED Review of Systems ROS Unobtainable: other Constitutional Constitutional ED: Reports lethargy; Denies chills, fever(s), sweats or weight loss Eyes Eyes: Denies blurry vision, change in vision or diplopia ENT ENT ED: Denies rhinorrhea or sore throat Cardiovascular Cardiovascular: Denies chest pain, orthopnea or racing heartbeat Respiratory/Chest Respiratory/Chest: Denies cough, dyspnea, dyspnea on exertion, orthopnea or sputum Gastrointestinal Gastrointestinal: Denies abdominal pain, diarrhea, nausea or vomiting Genitourinary Genitourinary ED: Denies dysuria, hematuria or urinary frequency Musculoskeletal Musculoskeletal: Reports neck pain and other Details: Left arm pain ; Denies arthralgias, back pain or myalgias Integumentary Denies abscess, Abrasions or rash Neurologic Neurologic: Denies headache(s) or weakness Psychiatric Psychiatric: Denies anxiety, depression or suicidal thoughts Endocrine Endocrinology: Denies polydipsia, polyphagia or polyuria Hematologic/Lymphatic Hematologic/Lymphatic: Denies easy bleeding, easy bruising or lymphadenopathy Allergic/Immunologic Allergic/Immunologic ED: Denies mouth swelling, tongue swelling or urticaria EXAM Physical Exam Const Vital Signs: 03/17/24 00:08 03/17/24 00:12 Temperature 97.0 F L Temperature Source Temporal Pulse Rate 71 Respiratory Rate 20 H Respiratory Effort Normal Non-Labored Respiratory Pattern Normal Pulse Ox 99 Oxygen Delivery Method Room Air Positive well nourished and well developed General Appearance ED: well developed and NAD HEENT Reports TM's clear and moist mucous membranes normocephalic and atraumatic; Negative for trauma or tenderness Tympanic Membrane ED: Yes TM's clear Eyes PERRL and EOMs intact bilaterally General Eye ED: Negative for pale conjunctiva or scleral icterus Neck no lymphadenopathy, supple and no JVD General: Negative for tenderness Chest Wall inspection of chest normal and palpation of chest normal Chest: Negative for tenderness Resp normal respiratory effort and clear to auscultation bilaterally Effort and Inspection: Negative for respiratory distress or pain with movement Auscultation: Negative for rhonchi, wheezes or diminished lung sounds Cardio regular rate, regular rhythm, S1 normal heart sound, S2 normal heart sound and no murmurs Peripheral Pulses: pulses 2+ throughout GI normal to inspection, nondistended, normoactive bowel sounds, soft to palpation, non-tender, non-distended and no masses Back/Spine no CVA tenderness and no thoracic nor lumbar tenderness Back/Spine Narrative: Patient has tenderness palpation over the left trapezius and left cervical paraspinal musculature that seems to reproduce his pain. Extremity Extremity Narrative: Left arm-patient points to the left shoulder and glenohumeral joint as the source of his pain. On palpation am not really able to reproduce his pain significantly. He has good range of motion at the glenohumeral joint. There is no erythema or warmth. General Extremety ED: Negative for edema General Extremity: Negative for edema Neuro oriented x3, CN's II-XII intact bilaterally, no sensory deficits noted and gait normal Sensorium / Orientation: awake, alert, oriented to person, oriented to place and oriented to time Motor Exam: strength 5/5 throughout and strength abnormal Psych mental status grossly normal Skin no rashes or lesions noted and no wounds MDM MDM MDM Narrative Medical decision making narrative: Patient presents with left arm pain without trauma. Also complains of some neck pain. In the differential would be cervical radiculopathy versus bursitis of the shoulder joint versus atypical cardiac etiology. IV line established. EKG obtained on arrival showed a sinus rhythm with ventricular rate of 71 bpm with no acute ST segment changes. CBC with differential was unremarkable. Chemistries unremarkable. His blood glucose was elevated 150. Troponin was normal less than 3. Patient had x-rays of the cervical spine that showed some degenerative changes in x-rays of the left shoulder showed some degenerative changes of the glenohumeral joint. This point he was given Toradol 15 mg IV. He will be discharged to home. He will be given a sling. Will refer to orthopedics for follow-up. Lab Data Attestation: I reviewed the patient's lab results. Radiography Diagnostic Testing: Three-view x-rays of the cervical spine obtained interpreted by myself as degenerative changes without evidence of fractures or lytic lesions. Radiology in agreement. 2 view x-rays left shoulder obtained interpreted by myself as no evidence of fracture or dislocations. Radiology felt there was some degenerative changes. EKG Initial EKG: Attestation: I personally reviewed and interpreted this EKG as follows: Comments: Sinus rhythm with rate of 71 bpm with no acute ST segment changes Discharge Plan Triage Chief Complaint: Upper Extremity Injury ED Provider: Gilberto Gilliam Dx/Rx/DC Orders Clinical Impression: Acute pain of left shoulder Instructions: ED Shoulder Pain, Uncertain Cause Prescriptions: New hydrocodone-acetaminophen 5-325 mg tablet 1 tab PO Q4H PRN PRN (Reason: Pain) 2 Days Qty: 14 0RF naproxen 500 mg tablet 500 mg PO BID Qty: 14 0RF Primary Care Provider: [facility] Ela Cox Referrals: Dominick Juarez MD [Med Staff - Active Staff] [facility] [facility] - Print Language: [place] Disposition Disposition: Home, Self Care
[2024-03-17 00:42] LABS: Absolute Lymphocyte Count 1.83 X10^3/uL (0.83-4.51); Basophil# 0.06 X10^3/uL; Basophil% 0.7 % (0-1); Eosinophil# 0.35 X10^3/uL; Eosinophils% 4.3 % (0-5); Hematocrit 44.8 % (40-54); Lymphocyte # 1.83 X10^3/ul (0.83-4.51); Lymphocyte % 22.6 % (19-41); Mean Corp Hgb Conc 33.5 g/dL (32-36); Mean Corpuscular Hgb 28.6 pg (27.0-32.0); Mean Corpuscular Volume 85.5 fL (80-94); Mean Platelet Vol. 10.7 fl (6.2-12.0); Monocyte# 0.73 X10^3/uL; NRBC Flagged by Analyzer 0 % (0-5); Neutrophil # 5.02 X10^3/uL (2.7-7.7); Neutrophil % 61.9 % (47-70); Platelet Count 214 K/mm3 (150-450); RBC Distribution Width CV 13.7 % (11.6-14.6); RBC Distribution Width SD 42.6 fl (35.1-43.9); Red Blood Count 5.24 M/mm3 (4.6-6.2); White Blood Count 8.1 K/mm3 (4.4-11.0)
[2024-03-17] MEDS: Ketorolac 15 MG/ML Vial IV (01:05)
[2024-03-17 01:21] LABS: Anion Gap 6 (5-15); BUN 25 mg/dL (7-18); BUN/Creat Ratio 21.9 RATIO (10-20); Calcium,Total 8.9 mg/dL (8.5-10.1); Chloride 110 mmol/L (98-107); Creatinine, Serum 1.14 mg/dL (0.70-1.30); EST Glomerular Filtration Rate 71 mL/min (>60); Est Glom Filt Rate - Afr Amer 86 mL/min (>60); Estimated Creatinine Clearance 83.67 ml/min; Glucose 150 mg/dL (74-106); Potassium 3.9 mmol/L (3.5-5.1); Sodium Level 141 mmol/L (136-145); Troponin-I HS < 3 pg/mL (3.0-78.0)
[2024-03-17 01:47] VITALS: BP 135/87; PULSE 74; RESP 16; TEMP 36.8; O2SAT 98
== END 2024-03-17 01:50 | disposition home or self-care (01) ==
PROVIDERS: Emergency Provider Emergency Medicine; Visit Provider Emergency Medicine
DX: M25.512 Pain in left shoulder (principal); E11.9 Type 2 diabetes mellitus without complications; Z87.891 Personal history of nicotine dependence; M75.02 Adhesive capsulitis of left shoulder
CPT/HCPCS: 72040; 73030; 80048; 84484; 85025; 93005; 96374; 99285; A4216